=== PATIENT | male | born 1995 | race Caucasian/White ===

== ENCOUNTER 2016-12-06 10:57 | Emergency (ER) | payer OTHER ==
[~2016-12-06] VITALS: Ht 177.8 cm; Wt 72.6 kg
[~2016-12-06 10:57] MED LIST: ALBUTEROL SULF8.5 GM INH; AUGMENTIN 875-1 EAC1 ORAL; BACTRIM-DS1 EA ORAL; BACTROBAN 2% OI15 GM TOPIC; IBUPROFEN600 MG ORAL; UNOBMED
[2016-12-06] MEDS ORDERED: MECLIZINE HCL25 MG ORAL (11:31)
[2016-12-06 15:54] VITALS: BP 148/78
--- NOTE | 2016-12-11 05:10 | Emergency Room Report ---
History of Present Illness General Chief Complaint: Dizziness Source: Patient Present Illness HPI Patient is a 21-year-old male who presented after increased dizziness. Patient reported having increased dizziness with head movement. This had began several days ago. Patient denied any fever. He had not been vomiting. He reported spinning sensation. He denied any recent head trauma. The patient denied feeling lightheaded. Allergies: Coded Allergies: No Known Allergies (Unverified , 10/12/15) Patient History Reviewed Nursing Documentation: PMH: Agreed, PSxH: Agreed Nursing Documentation-PM Past Medical History: No Stated History Hx Cardiac Problems: No Hx Asthma: Yes Hx Cancer: No Hx Gastrointestinal Problems: No Hx Neurological Problems: No Review of Systems All Other Systems: negative except mentioned in HPI Physical Exam Vital Signs Date Time Temp Pulse Resp B/P Pulse Ox O2 Delivery O2 Flow Rate FiO2 12/06/16 11:13 98.4 76 16 148/78 100 Room Air General Appearance: well appearing, no apparent distress, alert, GCS 15 Head: normocephalic, atraumatic ENT: hearing grossly normal, normal voice Neck: full range of motion, supple Respiratory: normal inspection, chest non-tender, lungs clear, no respiratory distress, speaking full sentences Cardiovascular #1: normal inspection, regular rate, rhythm Gastrointestinal: normal inspection, normal bowel sounds, non tender, soft Musculoskeletal: normal inspection, digits/nails normal, no calf tenderness Neurologic: normal inspection, alert, oriented x3, licensed prosthetist III-XII nml as tested, motor strength/tone normal, DTRs symmetric, cerebellar normal, normal gait Psychiatric: mood/affect normal Skin: no rash Medical Decision Making Diagnostic Impression: Primary Impression: Vertigo ER Course Patient presented for vertigo. Differential diagnosis included was not limited to CVA, vertebrobasilar insufficiency, myocardial infarction, benign positional vertigo, labyrinthitis, aspirin overdose among others. The patient has exam consistent with peripheral vertigo likely do to benign positional vertigo. Patient was given oral meclizine. Patient had improvement in symptoms.The patient is advised to follow up with primary care doctor in 1-2 days. Patient is advised to return if any worsening condition or if any changes in status that are concerning. Last Vital Signs Date Time Temp Pulse Resp B/P Pulse Ox O2 Delivery O2 Flow Rate FiO2 12/06/16 15:54 98.4 76 16 148/78 100 Room Air Status: improved Disposition: HOME, SELF-CARE Condition: Stable Scripts Meclizine Hcl* (MECLIZINE*) 25 Mg Tablet 25 MG ORAL THREE TIMES A DAY, #20 TAB Prov: Bryn Saeed 12/06/16 Referrals: NON PHYSICIAN (PCP) Patient Instructions: VerBryn Brooks Dec 11, 2016 05:10
== END 2016-12-06 11:45 | disposition home or self-care (01) ==
LOC: EMR 11:41
DX: R42 Dizziness and giddiness (principal); J45.909 Unspecified asthma, uncomplicated
CPT/HCPCS: 99282

== ENCOUNTER 2017-01-23 21:19 | Emergency (ER) | payer OTHER ==
[~2017-01-23] VITALS: Ht 177.8 cm; Wt 70.3 kg
[~2017-01-23 21:19] MED LIST changes: +MECLIZINE HCL25 MG ORAL
[2017-01-23] MEDS ORDERED: PREDNISONE50 MG ORAL (22:09)
[2017-01-23] MEDS ORDERED: BENADRYL25 MG ORAL (22:09)
--- NOTE | 2017-01-23 22:10 | Emergency Room Report ---
History of Present Illness General Chief Complaint: Allergic Reaction Source: Patient Present Illness [facility] This is a 22-year-old male with no past medical history. He presents with allergic reaction. Unknown etiology. He ate lunch today. He had Ramen noodle which he had before. At 4:00 at work he noticed some redness and blotchiness to his face and eye. He didn't develop was to his body. He took Benadryl which helped. Now is coming back. Denies any shortness of breath. Denies any wheezing. Denies any other complaint. No nausea no vomiting. Allergies: Coded Allergies: SHRIMP (Unverified Allergy, Unknown, 01/23/17) Uncoded Allergies: SHRIMPS (Allergy, Unknown, 01/23/17) Patient History Past Medical History: see triage record, old chart reviewed Past Surgical History: none Pertinent Family History: none Social History: Denies: smoking Immunizations: other Reviewed Nursing Documentation: PMH: Agreed, PSxH: Agreed Nursing Documentation-PMH Hx Cardiac Problems: No Hx Asthma: Yes Hx Cancer: No Hx Gastrointestinal Problems: No Hx Neurological Problems: No Review of Systems Eye: Denies: blurred vision, eye pain ENT: Denies: ear pain, nose congestion, throat swelling Respiratory: Denies: cough, shortness of breath Cardiovascular: Denies: chest pain, palpitations Gastrointestinal: Denies: abdominal pain, diarrhea, nausea, vomiting Musculoskeletal: Denies: back pain, joint pain Skin: Reports: rash Neurological: Denies: headache, numbness Endocrine: Denies: increased thirst, increased urine Hematologic/Lymphatic: Denies: easy bruising All Other Systems: negative except mentioned in HPI Physical Exam Vital Signs Date Time Temp Pulse Resp B/P Pulse Ox O2 Delivery O2 Flow Rate FiO2 01/23/17 21:50 98.2 92 16 138/80 97 Room Air vitals normal Sp02 EP Interpretation: reviewed, normal General Appearance: well appearing, no apparent distress, alert Head: normocephalic, atraumatic Eyes: bilateral eye EOMI, bilateral eye PERRL ENT: hearing grossly normal, normal pharynx Neck: full range of motion, supple, no meningismus Respiratory: chest non-tender, lungs clear, normal breath sounds Cardiovascular #1: regular rate, rhythm, no murmur Gastrointestinal: normal bowel sounds, non tender, no mass, no organomegaly, no bruit, non-distended Musculoskeletal: back normal, gait/station normal, normal range of motion Psychiatric: mood/affect normal Skin: warm/dry, rash - Urticarial rash scattered through body, mostly torso Medical Decision Making Diagnostic Impression: Primary Impression: Allergic reaction Qualified Codes: T78.40XA - Allergy, unspecified, initial encounter ER Course Patient presents with allergic reaction. Unknown etiology. Probably from his food. No evidence of anaphylaxis. He is otherwise stable. We'll discharge home. Recommend outpatient followup with flask cleaner for skin testing and blood testing. Last Vital Signs Date Time Temp Pulse Resp B/P Pulse Ox O2 Delivery O2 Flow Rate FiO2 01/23/17 21:50 98.2 92 16 138/80 97 Room Air Status: improved Disposition: HOME, SELF-CARE Condition: Stable Scripts Prednisone* (PREDNISONE*) 50 Mg Tablet 50 MG ORAL DAILY, #3 TAB 0 Refills Prov: PRETTY ORTEGA M.D. 01/23/17 Diphenhydramine Hcl* (BENADRYL*) 25 Mg Capsule 50 MG ORAL Q6H Y for Itching, #30 CAP Prov: PRETTY ORTEGA M.D. 01/23/17 Patient Instructions: Allergies Additional Instructions: Followup your Dr. in 2-3 days. Recommend referral to see an flask cleaner. You may be skin testing and blood testing to see what is the cause of your allergy. Return for any concern. Return for respiratory problem or tongue swelling. PRETTY ORTEGA M.D. Jan 23, 2017 22:10
[2017-01-23 22:14] VITALS: BP 138/80
[2017-01-23] MEDS ORDERED: PredniSONE 20mg tab ORAL ONE (22:15)
[2017-01-23 22:35] VITALS: BP 138/80
== END 2017-01-23 22:35 | disposition home or self-care (01) ==
LOC: EMR 22:03
DX: T78.40XA Allergy, unspecified, initial encounter (principal); J45.909 Unspecified asthma, uncomplicated; Z91.013 Allergy to seafood; X58.XXXA Exposure to other specified factors, initial encounter; Y92.9 Unspecified place or not applicable; Y99.8 Other external cause status
CPT/HCPCS: 99284

== ENCOUNTER 2020-02-19 10:40 | Emergency (ER) | payer OTHER ==
[~2020-02-19] VITALS: Ht 177.8 cm; Wt 81.6 kg
[~2020-02-19 10:40] MED LIST changes: +BENADRYL25 MG ORAL; +PREDNISONE50 MG ORAL
[2020-02-19 10:48] VITALS: BP 143/76
--- NOTE | 2020-02-19 10:50 | NUR ---
ED Nurse Note: patient walked into ED from home c/o itchy rash that started on his face, radiating to his neck which comes and goes for the past days. patient reports benadryl is not working so he stopped taking since 2 days ago. patient is alert awake x4 ambulatory, breathing unlabored and even, speaking in full sentences, no respiratory distress noted at this time.
[2020-02-19] MEDS ORDERED: PREDNISONE50 MG ORAL (10:56)
[2020-02-19] MEDS ORDERED: HYDROCORTISONE28 G2 TP (10:56)
[2020-02-19] MEDS ORDERED: BENADRYL25 MG ORAL (10:56)
[2020-02-19] MEDS ORDERED: DiphenhydrAMINE 25mg Tab ORAL ONE (11:00)
--- NOTE | 2020-02-19 11:00 | Emergency Room Report ---
History of Present Illness General Chief Complaint: Allergic Reaction Source: Patient Present Illness HPI Disclaimer: Please note that this report is being documented using [employer] technology. This can lead to erroneous entry secondary to incorrect interpretation by the dictating instrument. HPI: 25-year-old male with no reported medical history resents for evaluation of rash. Symptoms present approximately 4 days. He notes a raised, circular itchy rash originally beginning around his face and spreading to the trunk, extremities and back. The rash comes and goes. He was taking Benadryl intermittently did not appear to be helping his symptoms. Has not taken Benadryl in approximately 2 days. Denies any skin sloughing, drainage, bleeding , breakdown. Denies any oral or genital lesions. Denies dysuria, hematuria. Denies wheezing, sore throat, stridor, difficulty swallowing, nasal congestion, cough or any signs of respiratory distress. Denies fever or chills. Similar presentation several years ago improved with steroids and Benadryl. He did not seek allergy testing at that time. No known sick contacts. Otherwise in his usual state of health. Denies any new medications, personal hygiene products, new foods, new exposures to chemicals or known allergens. PMH: Denies PSH: Denies Allergies: Shrimp Social Hx: Denies Allergies: Coded Allergies: SHRIMP (Unverified Allergy, Unknown, 01/23/17) Uncoded Allergies: SHRIMPS (Allergy, Unknown, 01/23/17) COVID-19 Screening Contact w/high risk pt: No Recent Travel to affected area: No Experienced COVID-19 symptoms?: No Nursing Documentation-PMH Past Medical History: No Stated History Hx Cardiac Problems: No Hx Asthma: Yes Hx Cancer: No Hx Gastrointestinal Problems: No Hx Neurological Problems: No Physical Exam Vital Signs Date Time Temp Pulse Resp B/P (MAP) Pulse Ox O2 Delivery O2 Flow Rate FiO2 02/19/20 10:48 98.8 91 16 143/76 (98) 96 Room Air General: Awake and alert, no acute distress HEENT: NC/AT. EOMI. Resp: Normal work of breathing Skin: Intact. Warm, dry. No abrasions, lacerations. There are scattered urticarial-like lesions over the back, torso and extremities. No lesions on the face. No oral lesions. Nikolsky negative. MSK: Normal tone and bulk. Moving all extremities. No obvious deformity. Neuro: Awake and alert. Mentating appropriately Medical Decision Making Diagnostic Impression: Primary Impression: Rash Additional Impression: Allergic reaction ER Course 35-year-old male presents for evaluation of rash. Differential includes was not limited to allergic reaction of unknown etiology, scabies, psoriasis, eczema. Most consistent with an allergic reaction though exposure is unknown. Will treat with Benadryl every 6 hours for the next few days and started on prednisone. Will give hydrocortisone for itching to use as needed. Advised patient that he needs allergy testing. This can be performed on outpatient basis. He shows no signs of anaphylaxis or respiratory distress. Instructed to return to the emergency department if these symptoms arise or if his condition worsens. He understands and agrees with treatment plan. Will be discharged home. Last Vital Signs Date Time Temp Pulse Resp B/P (MAP) Pulse Ox O2 Delivery O2 Flow Rate FiO2 02/19/20 10:54 91 16 Room Air 02/19/20 10:48 98.8 143/76 96 Disposition: HOME, SELF-CARE Condition: Stable Scripts Hydrocortisone 1% Oint (Hydrocortisone 1% Oint*) Y Oint 1 GM TP TID, #28 GM Prov: Andrea Green MD 02/19/20 Prednisone* (PREDNISONE*) 50 Mg Tablet 50 MG ORAL DAILY, #3 TAB 0 Refills Prov: Andrea Green MD 02/19/20 Diphenhydramine Hcl* (BENADRYL*) 25 Mg Capsule 50 MG ORAL Q6H PRN for Itching, #30 CAP Prov: Andrea Green MD 02/19/20 Referrals: [facility] Patient Instructions: Drug Allergy, Allergies Additional Instructions: Please follow-up with your primary care doctor in the next 1 to 3 days to discuss this emergency department visit and for reevaluation. If you have any new or worsening symptoms please return to the emergency department for reevaluation. Please note that this report is being documented using [employer] technology. This can lead to erroneous entry secondary to incorrect interpretation by the dictating instrument. Andrea Green MD Feb 19, 2020 11:00
[2020-02-19 11:12] VITALS: BP 143/76
--- NOTE | 2020-02-19 11:12 | NUR ---
ER DISCHARGE NOTE: Patient is cleared to be discharged per Dr. Green. Patient AxO x 4, no s/s of acute distress, verbalized understanding of medications. All belongings with patient.
== END 2020-02-19 11:12 | disposition home or self-care (01) ==
LOC: EMR 10:59
DX: T78.40XA Allergy, unspecified, initial encounter (principal); X58.XXXA Exposure to other specified factors, initial encounter; R21 Rash and other nonspecific skin eruption; Z91.013 Allergy to seafood
CPT/HCPCS: J7512; Z7502; 99282